=== PATIENT | female | born 1995 | race Caucasian/White ===

== ENCOUNTER 2017-09-11 14:49 | Inpatient (IN) | payer OTHER ==
[~2017-09-11] VITALS: Ht 149.9 cm; Wt 55.0 kg
[2017-09-11] VITALS (8 sets, daily range): BP systolic 102–146; BP diastolic 55–80; PULSE 114–142; RESP 18–19; TEMP 97.8–100.6; O2SAT 92–100
[2017-09-11] MEDS ORDERED: IOHEXOL 350 MG/ML 10 ML VIAL (for RAD DIAG) IVCONTRAST ONE (14:50)
--- NOTE | 2017-09-11 14:57 | PD ---
Physical Exam Time Seen by Provider: 14:53 Narrative 21-year-old female presents to emergency Department with complaint of abdominal pain, chills, vomiting, strong urine odor since last night. Is also complaining of headache. Unknown fevers. Patient does have fever 100.6 in triage. Heart rate is elevated. Patient seen in triage. Vital signs reviewed. Patient taken to medical bed. Data Data Last Documented VS Vital Signs Date Time Temp Pulse Resp B/P (MAP) Pulse Ox O2 Delivery O2 Flow Rate FiO2 09/11/17 14:52 100.6 142 18 134/71 (92) 96 MDM Supervised Visit with NINOSKA: Clair Meng Sep 11, 2017 14:57
[2017-09-11] MEDS ORDERED: SODIUM CHLOR 0.9% 1000 ML INJ 1,000 ML IV ONE ×4 (15:15→18:15)
--- NOTE | 2017-09-11 15:42 | PD ---
HPI Chief Complaint: Abdominal Pain Time Seen by Provider: 15:08 Travel History International Travel<30 days: No Contact w/Intl Traveler<30days: No Traveled to known affect area: No History of Present Illness HPI Patient is a 21-year-old female presents emergency Department with generalized aches all over her body. The patient states she's also had pain in her back and bilateral flanks and thinks she might have a kidney infection. She states she's been admitted to the hospital for kidney infections before. She states that her body aches of been all over her body for the past day and a half. She does not endorse any fevers. She states she's been having some mild nausea without vomiting and feels generally lousy. The patient on arrival appears to be ill, her symptoms are severe, worsening rapidly over the past day and a half , described as an ache, location as all over. Patient denies any rash, denies a history of IV drug use, denies any chest pain shortness of breath diarrhea or constipation or vaginal bleeding or vaginal discharge [facility] Past Medical History Genitourinary: Yes (uti's) ?: Not LMP: 09/01/17 Past Surgical History Surgical History: No Previous Surgery Social History Alcohol Use: Yes ([facility]) Tobacco Use: Yes (3 cigs/day) Substance Use: No Allergies-Medications (Allergen,Severity, Reaction): Coded Allergies: penicillin G (Verified Allergy, Severe, HIVES, 09/11/17) sulfamethoxazole (Verified Allergy, Severe, SEIZURE, 09/11/17) trimethoprim (Verified Allergy, Severe, SEIZURE, 09/11/17) Review of Systems Except as stated in HPI: all other systems reviewed are Neg Physical Exam Narrative GENERAL: Well-developed well-nourished, appears ill. SKIN: Hot and clammy. No rash no wound. HEAD: Atraumatic. Normocephalic. EYES: Pupils equal and round. No scleral icterus. No injection or drainage. ENT: No nasal bleeding or discharge. Mucous membranes pink and moist. NECK: Trachea midline. No JVD. CARDIOVASCULAR: Regular rhythm with tachycardia.. No murmur appreciated. 2+ bilateral equal pulses in all 4 extremities. RESPIRATORY: No accessory muscle use. Clear to auscultation. Breath sounds equal bilaterally. GASTROINTESTINAL: Abdomen soft, non-tender, nondistended. Hepatic and splenic margins not palpable. GENITOURINARY: Discharge from the cervix is white in appearance, there is strawberry cervix. No cervical friability no cervical motion tenderness no bimanual tenderness. MUSCULOSKELETAL: No obvious deformities. No clubbing. No cyanosis. No edema. NEUROLOGICAL: Awake and alert. No obvious cranial nerve deficits. Motor grossly within normal limits. Normal speech. PSYCHIATRIC: Appropriate mood and affect; insight and judgment normal. Data Data Last Documented VS Vital Signs Date Time Temp Pulse Resp B/P (MAP) Pulse Ox O2 Delivery O2 Flow Rate FiO2 09/11/17 17:11 126 19 102/55 (71) 99 Room Air 09/11/17 14:52 100.6 Orders Orders Electrocardiogram (09/11/17 15:12) Complete Blood Count With Diff (09/11/17 15:12) Comprehensive Metabolic Panel (09/11/17 15:12) Beta Hcg (Quant/Titer) (09/11/17 15:12) Prothrombin Time / Inr (Pt) (09/11/17 15:12) Act Partial Throm Time (Ptt) (09/11/17 15:12) Lactic Acid Sepsis Protocol (09/11/17 15:12) Magnesium (Mg) (09/11/17 15:12) Phosphorus (Po4) (09/11/17 15:12) Lipase (09/11/17 15:12) Ckmb (Isoenzyme) Profile (09/11/17 15:12) Troponin I (09/11/17 15:12) Urinalysis - C+S If Indicated (09/11/17 15:12) Blood Culture (09/11/17 15:12) Chest, Single Ap (09/11/17 15:12) Ecg Monitoring (09/11/17 15:12) Iv Access Insert/Monitor (09/11/17 15:12) Oximetry (09/11/17 15:12) Oxygen Administration (09/11/17 15:12) Sodium Chlor 0.9% 1000 Ml Inj (Ns 1000 M (09/11/17 15:15) Sodium Chlor 0.9% 1000 Ml Inj (Ns 1000 M (09/11/17 15:15) Urine Culture (09/11/17 15:40) Ketorolac Inj (Toradol Inj) (09/11/17 16:30) Ceftriaxone Inj (Rocephin Inj) (09/11/17 16:30) Gc And Chlamydia Pcr (09/11/17 16:28) Wet Prep Profile (09/11/17 16:28) CKMB (09/11/17 15:25) CKMB% (09/11/17 15:25) Influenzae A/B Antigen (09/11/17 17:00) Doxycycline (Vibramycin) (09/11/17 17:30) Azithromycin (Zithromax) (09/11/17 17:30) Metronidazole (Flagyl) (09/11/17 17:30) Ondansetron Inj (Zofran Inj) (09/11/17 17:30) Morphine Inj (Morphine Inj) (09/11/17 17:30) Ct Abd/Pel W Iv Contrast(Rout) (09/11/17 ) Labs Laboratory Tests Test 09/11/17 15:25 09/11/17 15:35 09/11/17 15:40 09/11/17 17:00 White Blood Count 18.2 TH/MM3 Red Blood Count 4.49 MIL/MM3 Hemoglobin 12.3 GM/DL Hematocrit 37.5 % Mean Corpuscular Volume 83.5 FL Mean Corpuscular Hemoglobin 27.5 PG Mean Corpuscular Hemoglobin Concent 32.9 % Red Cell Distribution Width 15.5 % Platelet Count 166 TH/MM3 Mean Platelet Volume 10.5 FL Neutrophils (%) (Auto) 84.6 % Lymphocytes (%) (Auto) 6.6 % Monocytes (%) (Auto) 8.5 % Eosinophils (%) (Auto) 0.0 % Basophils (%) (Auto) 0.3 % Neutrophils # (Auto) 15.4 TH/MM3 Lymphocytes # (Auto) 1.2 TH/MM3 Monocytes # (Auto) 1.6 TH/MM3 Eosinophils # (Auto) 0.0 TH/MM3 Basophils # (Auto) 0.1 TH/MM3 CBC Comment DIFF FINAL Differential Comment Prothrombin Time 13.8 SEC Prothromb Time International Ratio 1.2 RATIO Activated Partial Thromboplast Time 36.2 SEC Blood Urea Nitrogen 10 MG/DL Creatinine 0.85 MG/DL Random Glucose 91 MG/DL Total Protein 8.2 GM/DL Albumin 3.8 GM/DL Calcium Level 8.6 MG/DL Phosphorus Level 1.5 MG/DL Magnesium Level 1.7 MG/DL Alkaline Phosphatase 96 U/L Aspartate Amino Transf (AST/SGOT) 15 U/L Alanine Aminotransferase (ALT/SGPT) 19 U/L Total Bilirubin 0.9 MG/DL Sodium Level 128 MEQ/L Potassium Level 3.2 MEQ/L Chloride Level 95 MEQ/L Carbon Dioxide Level 21.7 MEQ/L Anion Gap 11 MEQ/L Estimat Glomerular Filtration Rate 84 ML/MIN Total Creatine Kinase 190 U/L Creatine Kinase MB 0.9 NG/ML Troponin I LESS THAN 0.02 NG/ML Lipase 60 U/L Human Chorionic Gonadotropin, Quant LESS THAN 1 MIU/ML Lactic Acid Level 0.9 mmol/L Urine Color YELLOW Urine Turbidity HAZY Urine pH 6.0 Urine Specific [place] 1.009 Urine Protein 30 mg/dL Urine Glucose (UA) NEG mg/dL Urine Ketones 150 mg/dL Urine Occult Blood MOD Urine Nitrite NEG Urine Bilirubin NEG Urine Urobilinogen LESS THAN 2.0 MG/DL Urine Leukocyte Esterase LARGE Urine RBC 20 /hpf Urine WBC 166 /hpf Urine WBC Clumps RARE Urine Squamous Epithelial Cells 17 /hpf Urine Renal Epithelial Cells 1 /hpf Urine Bacteria MANY /hpf Microscopic Urinalysis Comment CATH-CULTURE IND Clue Cells (Wet Prep) NONE SEEN Vaginal Trichomonas (Wet Prep) NONE SEEN Vaginal Yeast (Wet Prep) NONE SEEN MDM Medical Decision Making Medical Screen Exam Complete: Yes Emergency Medical Condition: Yes Differential Diagnosis UTI, sepsis, dehydration, electrolyte abnormality, pyelonephritis, acute abdomen , STD, PID. Narrative Course Patient roomed in the emergency department, appears ill on arrival does have to Sirs criteria on arrival. A blood cell count of 18.2 with left shift. Does have significant pyuria but contaminated specimen. Pelvic exam does reveal discharged without cervical motion tenderness. CAT scan of her abdomen has been ordered for completeness. Her chest x-ray is negative. Flu test negative. Blood cultures have been drawn and sent, patient was given Rocephin 1 g IV, azithromycin, doxycycline, Flagyl by mouth. Zofran. 2 L normal saline. Patient discussed with Dr. Argueta at 1700 shift change, additional 2 L of fluid of been ordered by her. We agree the patient does appear quite ill and will require admission to the hospital. Awaiting CAT scan of the abdomen Dr. Argueta will assume care and after CAT scan is performed will disposition the patient appropriately Critical Care Narrative Aggregate critical care time was 35 minutes. Time to perform other separately billable procedures was not included in the critical care time. My time did not include minutes spent treating any other patients simultaneously or on activities that did not directly contribute to the patient's treatment. The services I provided to this patient were to treat and/or prevent clinically significant deterioration that could result in: , disability, organ failure I provided critical care services requiring my management, as noted below: Chart data review, documentation time, medication orders and management, vital sign assessments/reviewing monitor data, ordering and reviewing lab tests, ordering and interpreting/reviewing x-rays and diagnostic studies, care of the patient and discussion of the patient with the admitting physicians. Diagnosis Primary Impression: Sepsis Qualified Codes: A41.9 - Sepsis, unspecified organism Additional Impressions: UTI (urinary tract infection) Vaginal discharge Admitting Information Admitting Physician Requests: Micah Hall MD Sep 11, 2017 15:42
--- NOTE | 2017-09-11 15:42 | RADRPT ---
EXAM DATE/TIME: 09/11/2017 15:09 [facility] COMPARISON: No previous studies available for comparison. INDICATIONS : Fever and chest pain. MEDICAL HISTORY : None. SURGICAL HISTORY : None. ENCOUNTER: Initial ACUITY: 1 day PAIN SCORE: 0/10 LOCATION: Bilateral chest FINDINGS: A single view of the chest demonstrates the lungs to be symmetrically aerated without evidence of mas s, infiltrate or effusion. The cardiomediastinal contours are unremarkable. Osseous structures are intact. CONCLUSION: Normal examination. Jose Fernandez Jr., MD on September 11, 2017 at 15:40 Board Certified Radiologist. This report was verified electronically.
[2017-09-11 15:53] LABS: AUTOMATED NEUTROPHIL # 15.4 TH/MM3 (1.8-7.7); BASOPHIL # 0.1 TH/MM3 (0-0.2); BASOPHIL % 0.3 % (0.0-2.0); HEMATOCRIT 37.5 % (35.0-46.0); HEMO FLAGS DIFF FINAL; LYMPH % 6.6 % (9.0-44.0); LYMPHOCYTE # 1.2 TH/MM3 (1.0-4.8); MEAN CELL VOLUME 83.5 FL (80.0-100.0); MEAN CORPUSCULAR HEMOGLOBIN 27.5 PG (27.0-34.0); MEAN CORPUSCULAR HGB CONC 32.9 % (32.0-36.0); MONO % 8.5 % (0.0-8.0); NEUT % 84.6 % (16.0-70.0); PLATELET COUNT 166 TH/MM3 (150-450); RED BLOOD COUNT 4.49 MIL/MM3 (4.00-5.30); RED CELL DISTRIBUTION WIDTH 15.5 % (11.6-17.2); WHITE BLOOD COUNT 18.2 TH/MM3 (4.0-11.0)
[2017-09-11 16:02] LABS: BACTERIA, URINE MANY /hpf; BLOOD, URINE MOD (NEG); GLUCOSE,URINE NEG (NEG); KETONE, URINE 150 mg/dL (NEG); NITRITE,URINE NEG (NEG); RENAL EPITHELIAL CELLS 1 /hpf; SQUAMOUS EPITHELIAL CELL URINE 17 /hpf (0-5); URINE COLOR YELLOW (YELLW/STRAW)
[2017-09-11 16:02] LABS: APTT (PATIENT) 36.2 SEC (24.3-30.1); INTERNATIONAL NORMALIZED RATIO 1.2 RATIO; PROTHROMBIN TIME - PATIENT 13.8 SEC (9.8-11.6)
[2017-09-11 16:03] LABS: COMMENT (UR) CATH-CULTURE IND; CULTURE IF INDICATED CATH CULTURE IND
[2017-09-11 16:29] LABS: ALT (GPT) 19 U/L (10-53); ANION GAP 11 MEQ/L (5-15); AST (GOT) 15 U/L (15-37); BICARBONATE 21.7 MEQ/L (21.0-32.0); BLOOD UREA NITROGEN 10 MG/DL (7-18); CHLORIDE 95 MEQ/L (98-107); GLOMERULAR FILTRATION RATE 84 ML/MIN (>89); MAGNESIUM 1.7 MG/DL (1.5-2.5); POTASSIUM 3.2 MEQ/L (3.5-5.1); SODIUM (NA) 128 MEQ/L (136-145)
[2017-09-11] MEDS ORDERED: KETOROLAC TROMETHAMINE 30 MG/ML (IVP) VIAL IV PUSH ONE (16:30)
[2017-09-11] MEDS ORDERED: cefTRIAXone INJ 1,000 MG in SODIUM CHLORIDE 0.9% INJ 100 ML IV ONE (16:30)
[2017-09-11 16:33] LABS: ALKALINE PHOSPHATASE 96 U/L (45-117); BETA HCG QUANT LESS THAN 1 MIU/ML (0-5); CREATINE KINASE 190 U/L (26-192); TOTAL BILIRUBIN ADULT 0.9 MG/DL (0.2-1.0)
[2017-09-11 16:45] LABS: CKMB 0.9 NG/ML (0.5-3.6)
[2017-09-11] MEDS ORDERED: metroNIDAZOLE 500 MG TAB PO ONE (17:30)
[2017-09-11] MEDS ORDERED: DOXYCYCLINE HYCLATE 100 MG CAP PO ONE (17:30)
[2017-09-11] MEDS ORDERED: ONDANSETRON HCL 4 MG/2 ML VIAL IV PUSH ONE (17:30)
[2017-09-11] MEDS ORDERED: AZITHROMYCIN 250 MG TAB PO ONE (17:30)
[2017-09-11] MEDS ORDERED: MORPHINE SULFATE 2 MG/ML INJ IV PUSH ONE (17:30)
--- NOTE | 2017-09-11 18:12 | PD ---
Physical Exam Date Seen by Provider: Sep 11, 2017 Narrative Care was assumed from Dr. Shaw at 5 PM pending workup for sepsis. The patient has had 2 L of fluid thus far. Her heart rate remains between 125 and 140. Systolic blood pressure was 105. Abrasions are dry. Abdomen is soft and nontender. She does have some right CVA tenderness as well. Data Data Last Documented VS Vital Signs Date Time Temp Pulse Resp B/P (MAP) Pulse Ox O2 Delivery O2 Flow Rate FiO2 09/11/17 20:15 99.5 122 18 129/68 (88) 98 Room Air Orders Orders Electrocardiogram (09/11/17 15:12) Complete Blood Count With Diff (09/11/17 15:12) Comprehensive Metabolic Panel (09/11/17 15:12) Beta Hcg (Quant/Titer) (09/11/17 15:12) Prothrombin Time / Inr (Pt) (09/11/17 15:12) Act Partial Throm Time (Ptt) (09/11/17 15:12) Lactic Acid Sepsis Protocol (09/11/17 15:12) Magnesium (Mg) (09/11/17 15:12) Phosphorus (Po4) (09/11/17 15:12) Lipase (09/11/17 15:12) Ckmb (Isoenzyme) Profile (09/11/17 15:12) Troponin I (09/11/17 15:12) Urinalysis - C+S If Indicated (09/11/17 15:12) Blood Culture (09/11/17 15:12) Chest, Single Ap (09/11/17 15:12) Ecg Monitoring (09/11/17 15:12) Iv Access Insert/Monitor (09/11/17 15:12) Oximetry (09/11/17 15:12) Oxygen Administration (09/11/17 15:12) Sodium Chlor 0.9% 1000 Ml Inj (Ns 1000 M (09/11/17 15:15) Sodium Chlor 0.9% 1000 Ml Inj (Ns 1000 M (09/11/17 15:15) Urine Culture (09/11/17 15:40) Ketorolac Inj (Toradol Inj) (09/11/17 16:30) Ceftriaxone Inj (Rocephin Inj) (09/11/17 16:30) Gc And Chlamydia Pcr (09/11/17 16:28) Wet Prep Profile (09/11/17 16:28) CKMB (09/11/17 15:25) CKMB% (09/11/17 15:25) Influenzae A/B Antigen (09/11/17 17:00) Doxycycline (Vibramycin) (09/11/17 17:30) Azithromycin (Zithromax) (09/11/17 17:30) Metronidazole (Flagyl) (09/11/17 17:30) Ondansetron Inj (Zofran Inj) (09/11/17 17:30) Morphine Inj (Morphine Inj) (09/11/17 17:30) Ct Abd/Pel W Iv Contrast(Rout) (09/11/17 ) Sodium Chlor 0.9% 1000 Ml Inj (Ns 1000 M (09/11/17 18:15) Sodium Chlor 0.9% 1000 Ml Inj (Ns 1000 M (09/11/17 18:15) Iohexol 350 Inj (Omnipaque 350 Inj) (09/11/17 14:50) Acetaminophen (Tylenol) (09/11/17 18:15) Sodium Chlor 0.9% 1000 Ml Inj (Ns 1000 M (09/11/17 20:15) Admit Order (Ed Use Only) (09/11/17 20:16) Place In Observation (09/11/17 ) Vital Signs (Adult) Q4H (09/11/17 20:16) Activity Oob With Assistance (09/11/17 20:16) Jewel Stripper / Telemetry .CONTINUOUS (09/11/17 20:16) Intake + Output TOÑITO.QSHIFT (09/11/17 20:16) Diet Heart Healthy (09/12/17 Breakfast) Sodium Chloride 0.9% Flush (Ns Flush) (09/11/17 20:30) Sodium Chloride 0.9% Flush (Ns Flush) (09/11/17 21:00) Basic Metabolic Panel (Bmp) (09/12/17 06:00) Complete Blood Count With Diff (09/12/17 06:00) Case Management Consult (09/11/17 20:16) Naloxone Inj (Narcan Inj) (09/11/17 20:30) Labs Laboratory Tests Test 09/11/17 15:25 09/11/17 15:35 09/11/17 15:40 09/11/17 17:00 White Blood Count 18.2 TH/MM3 Red Blood Count 4.49 MIL/MM3 Hemoglobin 12.3 GM/DL Hematocrit 37.5 % Mean Corpuscular Volume 83.5 FL Mean Corpuscular Hemoglobin 27.5 PG Mean Corpuscular Hemoglobin Concent 32.9 % Red Cell Distribution Width 15.5 % Platelet Count 166 TH/MM3 Mean Platelet Volume 10.5 FL Neutrophils (%) (Auto) 84.6 % Lymphocytes (%) (Auto) 6.6 % Monocytes (%) (Auto) 8.5 % Eosinophils (%) (Auto) 0.0 % Basophils (%) (Auto) 0.3 % Neutrophils # (Auto) 15.4 TH/MM3 Lymphocytes # (Auto) 1.2 TH/MM3 Monocytes # (Auto) 1.6 TH/MM3 Eosinophils # (Auto) 0.0 TH/MM3 Basophils # (Auto) 0.1 TH/MM3 CBC Comment DIFF FINAL Differential Comment Prothrombin Time 13.8 SEC Prothromb Time International Ratio 1.2 RATIO Activated Partial Thromboplast Time 36.2 SEC Blood Urea Nitrogen 10 MG/DL Creatinine 0.85 MG/DL Random Glucose 91 MG/DL Total Protein 8.2 GM/DL Albumin 3.8 GM/DL Calcium Level 8.6 MG/DL Phosphorus Level 1.5 MG/DL Magnesium Level 1.7 MG/DL Alkaline Phosphatase 96 U/L Aspartate Amino Transf (AST/SGOT) 15 U/L Alanine Aminotransferase (ALT/SGPT) 19 U/L Total Bilirubin 0.9 MG/DL Sodium Level 128 MEQ/L Potassium Level 3.2 MEQ/L Chloride Level 95 MEQ/L Carbon Dioxide Level 21.7 MEQ/L Anion Gap 11 MEQ/L Estimat Glomerular Filtration Rate 84 ML/MIN Total Creatine Kinase 190 U/L Creatine Kinase MB 0.9 NG/ML Troponin I LESS THAN 0.02 NG/ML Lipase 60 U/L Human Chorionic Gonadotropin, Quant LESS THAN 1 MIU/ML Lactic Acid Level 0.9 mmol/L Urine Color YELLOW Urine Turbidity HAZY Urine pH 6.0 Urine Specific [place] 1.009 Urine Protein 30 mg/dL Urine Glucose (UA) NEG mg/dL Urine Ketones 150 mg/dL Urine Occult Blood MOD Urine Nitrite NEG Urine Bilirubin NEG Urine Urobilinogen LESS THAN 2.0 MG/DL Urine Leukocyte Esterase LARGE Urine RBC 20 /hpf Urine WBC 166 /hpf Urine WBC Clumps RARE Urine Squamous Epithelial Cells 17 /hpf Urine Renal Epithelial Cells 1 /hpf Urine Bacteria MANY /hpf Microscopic Urinalysis Comment CATH-CULTURE IND Clue Cells (Wet Prep) NONE SEEN Vaginal Trichomonas (Wet Prep) NONE SEEN Vaginal Yeast (Wet Prep) NONE SEEN MDM Supervised Visit with NINOSKA: No Narrative Course Vital Signs Date Time Temp Pulse Resp B/P (MAP) Pulse Ox O2 Delivery O2 Flow Rate FiO2 09/11/17 17:11 126 19 102/55 (71) 99 Room Air 09/11/17 17:10 16 09/11/17 15:48 132 19 133/80 (97) 99 Room Air 09/11/17 15:27 100 Room Air 09/11/17 14:52 100.6 142 18 134/71 (92) 96 CBC & BMP Diagram 09/11/17 15:25 Total Protein 8.2, Albumin 3.8, Calcium Level 8.6, Phosphorus Level 1.5 L, Magnesium Level 1.7, Alkaline Phosphatase 96, Aspartate Amino Transf (AST/SGOT) 15, Alanine Aminotransferase (ALT/SGPT) 19, Total Bilirubin 0.9 Lactic acid level is 0.9. UA>>mod blood, 20 RBCs, 166 WBCs, many bact Wet prep is negative. Chest x-ray is negative for acute process. The chest x-ray was independently viewed by me. His patient has been treated so far with Rocephin, doxycycline, Zithromax and Flagyl. She has already been bolused with 2 L of fluid. I have added an additional 2 L of fluid. She has not been hypotensive so pressors have not been ordered. Critical Care Narrative Aggregate critical care time was 45 minutes. Time to perform other separately billable procedures was not included in the critical care time. My time did not include minutes spent treating any other patients simultaneously or on activities that did not directly contribute to the patient's treatment. The services I provided to this patient were to treat and/or prevent clinically significant deterioration due to pyelonephritis with sepsis I provided critical care services requiring my management, as noted below: Chart data review, documentation time, medication orders and management, vital sign assessments/reviewing monitor data, ordering and reviewing lab tests, ordering and interpreting/reviewing x-rays and diagnostic studies, care of the patient and discussion of the patient with the admitting physicians Sepsis Criteria SIRS Criteria (2 or more): Heart rate over 90, WBC > 64880, < 4000 or > 10% bands Sepsis Criteria (SIRS+source): Infect source susp/known Physician Communication Physician Communication [facility] initially paged at [phone]. Diagnosis Primary Impression: Sepsis Qualified Codes: A41.9 - Sepsis, unspecified organism Additional Impressions: Vaginal discharge UTI (urinary tract infection) Qualified Codes: N10 - Acute pyelonephritis Admitting Information Admitting Physician Requests: Admit Condition: Christy Mejias MD Sep 11, 2017 18:12
[2017-09-11] MEDS ORDERED: ACETAMINOPHEN 325 MG TAB PO ONE (18:15)
--- NOTE | 2017-09-11 18:40 | RADRPT ---
EXAM DATE/TIME: 09/11/2017 17:57 [facility] COMPARISON: No previous studies available for comparison. INDICATIONS : Generalized abdominal pain with nausea and vomiting. IV CONTRAST: 100 cc Omnipaque 350 (iohexol) IV ORAL CONTRAST: No oral contrast ingested. RADIATION DOSE: 9.97 CTDIvol (mGy) MEDICAL HISTORY : None SURGICAL HISTORY : None. ENCOUNTER: Initial ACUITY: 1 day PAIN SCALE: 6/10 LOCATION: abdomen TECHNIQUE: Volumetric scanning of the abdomen and pelvis was performed. Using automated exposure control and ad justment of the mA and/or kV according to patient size, radiation dose was kept as low as reasonably achievable to obtain optimal diagnostic quality images. DICOM format image data is available electro nically for review and comparison. FINDINGS: LOWER LUNGS: The visualized lower lungs are clear. LIVER: Homogeneous density without lesion. There is no dilation of the biliary tree. No calcified gallston es. SPLEEN: Normal size without lesion. PANCREAS: Within normal limits. KIDNEYS: There are multiple subcentimeter nonobstructing stones throughout both kidneys. No evidence of hydron ephrosis. The left kidney is otherwise unremarkable. However, there is an area of decreased density a nd edema involving the upper pole of the right kidney. There appears to be some inflammatory type sandra nges in the perinephric fat adjacent to the right kidney along the upper pole. The ureters are nondil ated. ADRENAL GLANDS: Within normal limits. VASCULAR: There is no aortic aneurysm. BOWEL/MESENTERY: The stomach, small bowel, and colon demonstrate no acute abnormality. There is no free intraperitone al air or fluid. ABDOMINAL WALL: Within normal limits. RETROPERITONEUM: There is no lymphadenopathy. BLADDER: No wall thickening or mass. REPRODUCTIVE: Within normal limits. INGUINAL: There is no lymphadenopathy or hernia. MUSCULOSKELETAL: Within normal limits for patient age. CONCLUSION: 1. There is an area of decreased density and edema involving the upper pole the right kidney with renato e adjacent inflammatory type changes suggestive of focal nephritis given the bilateral nonobstructing renal stones.. This needs to be correlated with patient's physical exam, clinical history and labora tory values. A second possibility could be a focal infarct of unknown etiology versus focal laceratio n if patient has a recent history of trauma to this location.. 2. Otherwise, the rest examination is unremarkable. Joey Cabrera MD on September 11, 2017 at 18:33 Board Certified Radiologist. This report was verified electronically.
[2017-09-11] MEDS: SODIUM CHLOR 0.9% 1000 ML INJ 1,000 ML IV SCH (20:15)
[2017-09-11] MEDS ORDERED: NALOXONE HCL 0.4 MG/ML AMP IV PUSH PRN (20:30)
[2017-09-11] MEDS ORDERED: POTASSIUM CHLORIDE 20 MEQ CONTROLLED RELEASE TAB PO ONE (20:30)
[2017-09-11] MEDS ORDERED: SODIUM CHLORIDE 0.9% FLUSH 10 ML FLUSH IV FLUSH PRN (20:30)
[2017-09-11 20:45] LABS: CHLAMYDIA PCR NOT DETECTED (NOT DETECT); NEISSERIA PCR NOT DETECTED (NOT DETECT)
[2017-09-11] MEDS ORDERED: ACETAMINOPHEN/HYDROcodone 325 MG/5 MG TAB PO PRN (21:00)
[2017-09-11] MEDS: SODIUM CHLORIDE 0.9% FLUSH 10 ML FLUSH IV FLUSH SCH (21:00)
--- NOTE | 2017-09-11 21:06 | HHI.HP ---
HPI Service [facility] Primary Care Physician No Primary Care Physician Admission Diagnosis sepsis, pyelonephritis Diagnoses: Chief Complaint: back pain, and weakness Travel History International Travel<30 Days: No Contact w/Intl Traveler <30 Da: No Traveled to Known Affected Are: No History of Present Illness 21-year-old female with a history of kidney stones to the ED with complaints of general body aches and back pain for the past 2 days. Patient states over the past 2 days she has been having increasing generalized body aches and back pain , and today is extremely worse so she came to the hospital. She states the pain is a constant achy feeling the effects her whole body, with sharp pains to her lower back. She states the pain as an 8 out of 10 most of the time and worse with movement, she has been unable to eat and drink what the last 2 days. She states her last kidney stone was 2 months ago in [place]. She has not established a primary care physician in this area, she is in the process of moving from [place]. She states at home she is unsure if she had a fever due to lack of thermometer, but she does state she felt very cold and feverish. She denies any chest pain, shortness of breath, nausea or vomiting. Per the ER physician a pelvic exam was completed patient had positive cervical motion tenderness or discharge. Review of Systems Except as stated in HPI: all other systems reviewed are Neg Past Family Social History Past Medical History Kidney stones Past Surgical History Patient denies any surgical history Reported Medications Patient denies any home medications Allergies: Coded Allergies: penicillin G (Verified Allergy, Severe, HIVES, 09/11/17) sulfamethoxazole (Verified Allergy, Severe, SEIZURE, 09/11/17) trimethoprim (Verified Allergy, Severe, SEIZURE, 09/11/17) Active Ordered Medications Current Medications Medications (Trade) Dose Ordered Sig/Talya Route Start Time Stop Time Status Last Admin Sodium Chloride 1,000 ml @ 125 mls/hr Q8H IV 09/11/17 20:15 (NS Flush) 2 ml UNSCH PRN IV FLUSH 09/11/17 20:30 (NS Flush) 2 ml BID IV FLUSH 09/11/17 21:00 (Narcan Inj) 0.4 mg UNSCH PRN IV PUSH 09/11/17 20:30 Ciprofloxacin/ Dextrose 200 ml @ 200 mls/hr Q12H IV 09/11/17 21:00 Family History Dad: Kidney stones Social History Tobacco use: 2-3 cigarettes a day Alcohol use: Occasionally Illicit drug use: Denies Physical Exam Vital Signs Vital Signs Date Time Temp Pulse Resp B/P (MAP) Pulse Ox O2 Delivery O2 Flow Rate FiO2 09/11/17 20:15 99.5 122 18 129/68 (88) 98 Room Air 09/11/17 18:31 99.8 09/11/17 18:30 117 18 146/70 (95) 98 Room Air 09/11/17 17:11 126 19 102/55 (71) 99 Room Air 09/11/17 17:10 16 09/11/17 15:48 132 19 133/80 (97) 99 Room Air 09/11/17 15:27 100 Room Air 09/11/17 14:52 100.6 142 18 134/71 (92) 96 Physical Exam GENERAL: This is a well-nourished, well-developed patient, who appears weak SKIN: No rashes, ecchymoses or lesions. Cool and dry. HEAD: Atraumatic. Normocephalic EYES: Pupils equal round and reactive. Extraocular motions intact. ENT: Nose without bleeding, purulent drainage or septal hematoma. Airway patent. NECK: Trachea midline. No JVD or lymphadenopathy. Supple, nontender, no meningeal signs. CARDIOVASCULAR: Regular rate and rhythm without murmurs, gallops, or rubs. RESPIRATORY: Clear to auscultation. Breath sounds equal bilaterally. No wheezes , rales, or rhonchi. GASTROINTESTINAL: Abdomen soft, non-tender, nondistended. Bilateral CVA tenderness MUSCULOSKELETAL: Extremities without clubbing, cyanosis, or edema. . No calf tenderness. NEUROLOGICAL: Awake and alert. Motor and sensory grossly within normal limits. Normal speech. Laboratory Laboratory Tests Test 09/11/17 15:25 09/11/17 15:35 09/11/17 15:40 09/11/17 17:00 White Blood Count 18.2 Red Blood Count 4.49 Hemoglobin 12.3 Hematocrit 37.5 Mean Corpuscular Volume 83.5 Mean Corpuscular Hemoglobin 27.5 Mean Corpuscular Hemoglobin Concent 32.9 Red Cell Distribution Width 15.5 Platelet Count 166 Mean Platelet Volume 10.5 Neutrophils (%) (Auto) 84.6 Lymphocytes (%) (Auto) 6.6 Monocytes (%) (Auto) 8.5 Eosinophils (%) (Auto) 0.0 Basophils (%) (Auto) 0.3 Neutrophils # (Auto) 15.4 Lymphocytes # (Auto) 1.2 Monocytes # (Auto) 1.6 Eosinophils # (Auto) 0.0 Basophils # (Auto) 0.1 CBC Comment DIFF FINAL Differential Comment Prothrombin Time 13.8 Prothromb Time International Ratio 1.2 Activated Partial Thromboplast Time 36.2 Blood Urea Nitrogen 10 Creatinine 0.85 Random Glucose 91 Total Protein 8.2 Albumin 3.8 Calcium Level 8.6 Phosphorus Level 1.5 Magnesium Level 1.7 Alkaline Phosphatase 96 Aspartate Amino Transf (AST/SGOT) 15 Alanine Aminotransferase (ALT/SGPT) 19 Total Bilirubin 0.9 Sodium Level 128 Potassium Level 3.2 Chloride Level 95 Carbon Dioxide Level 21.7 Anion Gap 11 Estimat Glomerular Filtration Rate 84 Total Creatine Kinase 190 Creatine Kinase MB 0.9 Troponin I LESS THAN 0.02 Lipase 60 Human Chorionic Gonadotropin, Quant LESS THAN 1 Lactic Acid Level 0.9 Urine Color YELLOW Urine Turbidity HAZY Urine pH 6.0 Urine Specific [place] 1.009 Urine Protein 30 Urine Glucose (UA) NEG Urine Ketones 150 Urine Occult Blood MOD Urine Nitrite NEG Urine Bilirubin NEG Urine Urobilinogen LESS THAN 2.0 Urine Leukocyte Esterase LARGE Urine RBC 20 Urine WBC 166 Urine WBC Clumps RARE Urine Squamous Epithelial Cells 17 Urine Renal Epithelial Cells 1 Urine Bacteria MANY Microscopic Urinalysis Comment CATH-CULTURE IND Clue Cells (Wet Prep) NONE SEEN Vaginal Trichomonas (Wet Prep) NONE SEEN Vaginal Yeast (Wet Prep) NONE SEEN Date/Time Source Procedure Growth Status 09/11/17 15:38 Blood Peripheral Aerobic Blood Culture Pending Received 09/11/17 15:38 Blood Peripheral Anaerobic Blood Culture Pending Received 09/11/17 17:05 Nasal Washing Influenza Types A,B Antigen (RIVERA) - Final NEGATIVE FOR FLU A AND B ANTIGEN.... Complete 09/11/17 15:40 Urine Catheterized Urine Urine Culture Pending Received Result Diagram: 09/11/17 1525 09/11/17 1525 Imaging Last Impressions Chest X-Ray 09/11/17 1512 Signed Impressions: Service Date/Time: Monday, September 11, 2017 15:09 - CONCLUSION: Normal examination. Jose Fernandez Jr., MD Abdomen/Pelvis CT 09/11/17 0000 Signed Impressions: Service Date/Time: Monday, September 11, 2017 17:57 - CONCLUSION: 1. There is an area of decreased density and edema involving the upper pole the right kidney with some adjacent inflammatory type changes suggestive of focal nephritis given the bilateral nonobstructing renal stones.. This needs to be correlated with patient's physical exam, clinical history and laboratory values. A second possibility could be a focal infarct of unknown etiology versus focal laceration if patient has a recent history of trauma to this location.. 2. Otherwise, the rest examination is unremarkable. MD Orquidea Geller VTE Risk Assessment Caprini VTE Risk Assessment: No/Low Risk (score <= 1) Caprini Risk Assessment Model Point Value = 1 Point Value = 2 Point Value = 3 Point Value = 5 Age 41-60 Minor surgery BMI > 25 kg/m2 Swollen legs Varicose veins or History of unexplained or recurrent spontaneous Oral contraceptives or hormone replacement Sepsis (< 1 month) Serious lung disease, including pneumonia (< 1 month) Abnormal pulmonary function Acute myocardial infarction Congestive heart failure (< 1 month) History of inflammatory bowel disease Medical patient at bed rest Age 61-74 Arthroscopic surgery Major open surgery (> 45 min) Laparoscopic surgery (> 45 min) Malignancy Confined to bed (> 72 hours) Immobilizing plaster cast Central venous access Age >= 75 History of VTE Family history of VTE Factor V Leiden Prothrombin [id number] Lupus anticoagulant Anticardiolipin antibodies Elevated serum homocysteine Heparin-induced thrombocytopenia Other congenital or acquired thrombophilia Stroke (< 1 month) Elective arthroplasty Hip, pelvis, or leg fracture Acute spinal cord injury (< 1 month) Prophylaxis Regimen Total Risk Factor Score Risk Level Prophylaxis Regimen 0-1 Low Early ambulation 2 Moderate Order ONE of the following: *Sequential Compression Device (SCD) *Heparin 5000 units SQ BID 3-4 Higher Order ONE of the following medications: *Heparin 5000 units SQ TID *Enoxaparin/Lovenox 40 mg SQ daily (WT < 150 kg, CrCl > 30 mL/min) *Enoxaparin/Lovenox 30 mg SQ daily (WT < 150 kg, CrCl > 10-29 mL/min) *Enoxaparin/Lovenox 30 mg SQ BID (WT < 150 kg, CrCl > 30 mL/min) AND/OR *Sequential Compression Device (SCD) 5 or more Highest Order ONE of the following medications: *Heparin 5000 units SQ TID (Preferred with Epidurals) *Enoxaparin/Lovenox 40 mg SQ daily (WT < 150 kg, CrCl > 30 mL/min) *Enoxaparin/Lovenox 30 mg SQ daily (WT < 150 kg, CrCl > 10-29 mL/min) *Enoxaparin/Lovenox 30 mg SQ BID (WT < 150 kg, CrCl > 30 mL/min) AND *Sequential Compression Device (SCD) Assessment and Plan Problem List: (1) Pyelonephritis ICD Code: N12 - Tubulo-interstitial nephritis, not specified as acute or chronic Status: Acute (2) Sepsis ICD Code: A41.9 - Sepsis, unspecified organism Status: Acute (3) Vaginal discharge ICD Code: N89.8 - Other specified noninflammatory disorders of vagina Status: Acute Assessment and Plan 21-year-old female with a history of kidney stones to the ED with complaints of general body aches and back pain for the past 2 days. Sepsis, WBCs 18.2, heart rate 142, MAXIMUM TEMPERATURE 100.6 , source Pyelonephritis, lactic 0.9 UA shows large leukocyte esterase and moderate occult blood with positive protein Abdominal CT reviewed and shows decreased density and edema involving the upper pole of the right kidney with some adjacent inflammatory type changes suggestive of focal nephritis given the bilateral nonobstructing renal stones. -Urine culture and blood cultures pending -1 dose Rocephin given in the ED, continue IV ciprofloxacin -4 L NS given an ED, continue IVF for hydration -Pain management with by mouth [place] Hypokalemia, potassium 3.2 -Supplementation ordered, BMP in a.m., will replace as needed Vaginal discharge, wet prep completed in ED, patient with positive cervical motion tenderness Labs: Chlamydia, gonorrhea, Trichomonas and yeast undetected -Patient treated for chlamydia and gonorrhea in ED DVT prophylaxis: SCDs Discussed Condition With Patient and RN Physician Certification 2 Midnight Certification Type: Admission for Inpatient Services Order for Inpatient Services The services are ordered in accordance with Medicare regulations or non- Medicare payer requirements, as applicable. In the case of services not specified as inpatient-only, they are appropriately provided as inpatient services in accordance with the 2-midnight benchmark. Estimated LOS (days): 2 days is the estimated time the patient will need to remain in the hospital, assuming treatment plan goals are met and no additional complications. Post-Hospital Plan: Home Problem Qualifiers (1) Sepsis: Qualified Codes: A41.9 - Sepsis, unspecified organism Jordyn Nunes Sep 11, 2017 21:05
[2017-09-11] MEDS ORDERED: ONDANSETRON HCL 4 MG/2 ML VIAL IV PUSH PRN (22:00)
[2017-09-11] MEDS: ACETAMINOPHEN/HYDROcodone 325 MG/10 MG TAB PO PRN (22:32)
[2017-09-11] MEDS: CIPROFLOXACIN 400 MG PREMIX 200 ML IV SCH (22:32)
[2017-09-12] VITALS: BP 107/58; PULSE 100; RESP 18; TEMP 97.7; O2SAT 96
[2017-09-12] MEDS: SODIUM CHLOR 0.9% 1000 ML INJ 1,000 ML IV SCH ×2 (04:15→12:50)
[2017-09-12 04:24] VITALS: BP 95/55; PULSE 105; RESP 18; TEMP 97.5; O2SAT 92
[2017-09-12 07:21] LABS: AUTOMATED NEUTROPHIL # 6.9 TH/MM3 (1.8-7.7); BASOPHIL # 0.1 TH/MM3 (0-0.2); BASOPHIL % 0.6 % (0.0-2.0); EOSINOPHIL % 0.2 % (0.0-4.0); HEMATOCRIT 28.6 % (35.0-46.0); HEMO FLAGS DIFF FINAL; LYMPH % 16.2 % (9.0-44.0); LYMPHOCYTE # 1.7 TH/MM3 (1.0-4.8); MEAN CELL VOLUME 84.5 FL (80.0-100.0); MEAN CORPUSCULAR HEMOGLOBIN 28.2 PG (27.0-34.0); MEAN CORPUSCULAR HGB CONC 33.4 % (32.0-36.0); MONO % 15.8 % (0.0-8.0); NEUT % 67.2 % (16.0-70.0); PLATELET COUNT 116 TH/MM3 (150-450); RED BLOOD COUNT 3.39 MIL/MM3 (4.00-5.30); RED CELL DISTRIBUTION WIDTH 15.7 % (11.6-17.2); WHITE BLOOD COUNT 10.3 TH/MM3 (4.0-11.0)
[2017-09-12 07:52] LABS: BICARBONATE 20.1 MEQ/L (21.0-32.0); POTASSIUM 3.7 MEQ/L (3.5-5.1)
[2017-09-12 07:58] VITALS: BP 100/59; PULSE 98; RESP 16; TEMP 99.1; O2SAT 93
--- NOTE | 2017-09-12 08:13 | HHI.PR ---
Subjective Remarks Patient in bed, appears ill. No fever overnight. + chills. Was nauseated yesterday able to keep down some food. decreased appetite. No n/v/d/c. Pain is fairly controlled by meds. Pain is on right back radiating to the groin. No change in urine. Objective Vitals Vital Signs Date Time Temp Pulse Resp B/P (MAP) Pulse Ox O2 Delivery O2 Flow Rate FiO2 09/12/17 07:58 99.1 98 16 100/59 (73) 93 09/12/17 04:24 97.5 105 18 95/55 (68) 92 09/12/17 00:00 97.7 100 18 107/58 (74) 96 09/11/17 20:56 09/11/17 20:15 99.5 122 18 129/68 (88) 98 Room Air 09/11/17 20:00 97.8 114 18 105/61 (76) 92 09/11/17 18:31 99.8 09/11/17 18:30 117 18 146/70 (95) 98 Room Air 09/11/17 17:11 126 19 102/55 (71) 99 Room Air 09/11/17 17:10 16 09/11/17 15:48 132 19 133/80 (97) 99 Room Air 09/11/17 15:27 100 Room Air 09/11/17 14:52 100.6 142 18 134/71 (92) 96 I/O 09/11/17 09/11/17 09/11/17 09/12/17 09/12/17 09/12/17 07:00 15:00 23:00 07:00 15:00 23:00 Intake Total 4100 ml 1200 ml Output Total 1 ml Balance 4100 ml 1199 ml Intake IV Total 4100 ml 1200 ml Output Urine Total 1 ml # Voids 1 # Bowel Movements 2 Result Diagram: 09/12/17 0643 09/12/17 0643 Imaging Last Impressions Chest X-Ray 09/11/17 1512 Signed Impressions: Service Date/Time: Monday, September 11, 2017 15:09 - CONCLUSION: Normal examination. Jose Fernandez Jr., MD Abdomen/Pelvis CT 09/11/17 0000 Signed Impressions: Service Date/Time: Monday, September 11, 2017 17:57 - CONCLUSION: 1. There is an area of decreased density and edema involving the upper pole the right kidney with some adjacent inflammatory type changes suggestive of focal nephritis given the bilateral nonobstructing renal stones.. This needs to be correlated with patient's physical exam, clinical history and laboratory values. A second possibility could be a focal infarct of unknown etiology versus focal laceration if patient has a recent history of trauma to this location.. 2. Otherwise, the rest examination is unremarkable. Joey Cabrera MD Objective Remarks GENERAL: This is a well-nourished, well-developed patient, who appears ill CARDIOVASCULAR: Regular rate and rhythm without murmurs, gallops, or rubs. RESPIRATORY: Clear to auscultation. Breath sounds equal bilaterally. No wheezes , rales, or rhonchi. GASTROINTESTINAL: Abdomen soft right sided mild tenderness, Right CVA +, abd is nondistended. + BS x4Q MUSCULOSKELETAL: Extremities without clubbing, cyanosis, or edema. . No calf tenderness. NEUROLOGICAL: Awake and alert. Motor and sensory grossly within normal limits. Normal speech. A/P Problem List: (1) Pyelonephritis ICD Code: N12 - Tubulo-interstitial nephritis, not specified as acute or chronic Status: Acute (2) Sepsis ICD Code: A41.9 - Sepsis, unspecified organism Status: Acute (3) Vaginal discharge ICD Code: N89.8 - Other specified noninflammatory disorders of vagina Status: Acute Assessment and Plan 21-year-old female with a history of kidney stones to the ED with complaints of general body aches and back pain for the past 2 days. Sepsis, WBCs 18.2, heart rate 142, MAXIMUM TEMPERATURE 100.6 , source Pyelonephritis, lactic 0.9 on admission UA shows large leukocyte esterase and moderate occult blood with positive protein on admission Abdominal CT reviewed and shows decreased density and edema involving the upper pole of the right kidney with some adjacent inflammatory type changes suggestive of focal nephritis given the bilateral nonobstructing renal stones. -Urine culture and blood cultures pending -1 dose Rocephin given in the ED, continue IV ciprofloxacin -4 L NS given an ED, continue IVF for hydration -Pain management with by mouth [place] Hypokalemia, potassium 3.2 -Supplementation ordered, BMP in a.m., will replace as needed Vaginal discharge, wet prep completed in ED, patient with positive cervical motion tenderness Labs: Chlamydia, gonorrhea, Trichomonas and yeast undetected -Patient treated for chlamydia and gonorrhea in ED DVT prophylaxis: SCDs Discussed Condition With Patient, nurse Problem Qualifiers (1) Sepsis: Qualified Codes: A41.9 - Sepsis, unspecified organism Cherry Potter MD Sep 12, 2017 08:13
[2017-09-12] MEDS: SODIUM CHLORIDE 0.9% FLUSH 10 ML FLUSH IV FLUSH SCH ×2 (10:30→20:05)
[2017-09-12] MEDS: CIPROFLOXACIN 400 MG PREMIX 200 ML IV SCH ×2 (10:30→20:07)
[2017-09-12 12:00] VITALS: BP 124/71; PULSE 106; RESP 18; TEMP 101.3; O2SAT 97
--- NOTE | 2017-09-12 12:10 | EKG ---
Date Performed: 09/11/2017 Time Performed: 15:30:06 PTAGE: 21 years EKG: SINUS TACHYCARDIA ABNORMAL RHYTHM ECG NO PREVIOUS TRACING DOCTOR: Janell Contreras Interpretating Date/Time 09/12/2017 12:09:07
[2017-09-12] MEDS: ACETAMINOPHEN/HYDROcodone 325 MG/10 MG TAB PO PRN (13:25)
[2017-09-12] MEDS ORDERED: ACETAMINOPHEN 325 MG TAB PO PRN (14:00)
[2017-09-12 16:00] VITALS: BP 118/76; PULSE 106; RESP 16; TEMP 100.3; O2SAT 96
[2017-09-12 20:00] VITALS: BP 123/77; PULSE 91; PULSE 92; RESP 18; TEMP 98.7; O2SAT 97
[2017-09-13 00:05] VITALS: BP 126/86; PULSE 93; RESP 18; TEMP 98.2; O2SAT 98
[2017-09-13] MEDS: SODIUM CHLOR 0.9% 1000 ML INJ 1,000 ML IV SCH ×2 (04:15→04:50)
[2017-09-13 04:31] VITALS: BP 125/76; PULSE 97; RESP 18; TEMP 98.8; O2SAT 98
[2017-09-13 08:00] VITALS: BP 115/70; PULSE 93; RESP 16; TEMP 98.7; O2SAT 96
[2017-09-13] MEDS: SODIUM CHLORIDE 0.9% FLUSH 10 ML FLUSH IV FLUSH SCH (09:32)
[2017-09-13] MEDS: CIPROFLOXACIN 400 MG PREMIX 200 ML IV SCH (09:32)
--- NOTE | 2017-09-13 11:14 | HHI.PR ---
Subjective Remarks Temp 101 yesterday at noon. Afebrile since then. Patient feesl much better, feels comortable to go home. today. Eatin gbetter, encouraged PO intake / hydration. No fevr or chills. No n/v/d/c. No abd /suprapubic pain. Objective Vitals Vital Signs Date Time Temp Pulse Resp B/P (MAP) Pulse Ox O2 Delivery O2 Flow Rate FiO2 09/13/17 08:00 98.7 93 16 115/70 (85) 96 09/13/17 04:31 98.8 97 18 125/76 (92) 98 09/13/17 00:05 98.2 93 18 126/86 (99) 98 09/12/17 20:00 98.7 91 18 123/77 (92) 97 09/12/17 20:00 92 09/12/17 16:00 100.3 106 16 118/76 (90) 96 09/12/17 12:00 101.3 106 18 124/71 (88) 97 I/O 09/12/17 09/12/17 09/12/17 09/13/17 09/13/17 09/13/17 07:00 15:00 23:00 07:00 15:00 23:00 Intake Total 1200 ml 2566 ml 484 ml Output Total 1 ml Balance 1199 ml 2566 ml 484 ml Intake Oral 480 ml IV Total 1200 ml 2086 ml 484 ml Output Urine Total 1 ml # Voids 3 2 # Bowel Movements 2 2 Result Diagram: 09/12/1743 09/12/1743 Objective Remarks GENERAL: This is a well-nourished, well-developed patient, who appears ill CARDIOVASCULAR: Regular rate and rhythm without murmurs, gallops, or rubs. RESPIRATORY: Clear to auscultation. Breath sounds equal bilaterally. No wheezes , rales, or rhonchi. GASTROINTESTINAL: Abdomen soft right sided mild tenderness, mild right CVA +, abd is nondistended. + BS x4Q MUSCULOSKELETAL: Extremities without clubbing, cyanosis, or edema. . No calf tenderness. NEUROLOGICAL: Awake and alert. Motor and sensory grossly within normal limits. Normal speech. A/P Problem List: (1) Pyelonephritis ICD Code: N12 - Tubulo-interstitial nephritis, not specified as acute or chronic Status: Acute (2) Sepsis ICD Code: A41.9 - Sepsis, unspecified organism Status: Acute (3) Vaginal discharge ICD Code: N89.8 - Other specified noninflammatory disorders of vagina Status: Acute Assessment and Plan 21-year-old female with a history of kidney stones to the ED with complaints of general body aches and back pain for the past 2 days. Sepsis, WBCs 18.2, heart rate 142, MAXIMUM TEMPERATURE 100.6 , source Pyelonephritis, lactic 0.9 on admission. Sepsis resolved. UA shows large leukocyte esterase and moderate occult blood with positive protein on admission Abdominal CT reviewed and shows decreased density and edema involving the upper pole of the right kidney with some adjacent inflammatory type changes suggestive of focal nephritis given the bilateral nonobstructing renal stones. -Urine culture with E Coli pansensitive. Blood cultures NTD -1 dose Rocephin given in the ED, continue IV ciprofloxacin -4 L NS given an ED, continue IVF for hydration -Pain management with by mouth [place] Hypokalemia, potassium 3.2 -Supplementation ordered, BMP in a.m., will replace as needed Vaginal discharge, wet prep completed in ED, patient with positive cervical motion tenderness Labs: Chlamydia, gonorrhea, Trichomonas and yeast undetected -Patient treated for chlamydia and gonorrhea in ED DVT prophylaxis: SCDs Discussed Condition With Patient, nurse Discharge Planning DC home in stable condition to follow up as OP with PCP and consultants. Diet Regular Healthy Activity ad phuong as tolerated. Meds per med reconciliation Problem Qualifiers (1) Sepsis: Qualified Codes: A41.9 - Sepsis, unspecified organism Cherry Potter MD Sep 13, 2017 11:14
[2017-09-13] MEDS ORDERED: CIPR250T2 PO (11:15)
[2017-09-13] MEDS ORDERED: SODIUM CHLOR 0.45% 1000 ML INJ 1,000 ML IV SCH (11:15)
[2017-09-13] MEDS ORDERED: LACTCHW3 CHEW (11:15)
--- NOTE | 2017-09-13 11:15 | HHI.DS ---
Discharge Summary Admission Date Sep 11, 2017 at 20:18 Discharge Date: Sep 13, 2017 Admitting Diagnosis sepsis, pyelonephritis (1) Pyelonephritis ICD Code: N12 - Tubulo-interstitial nephritis, not specified as acute or chronic Status: Acute (2) Sepsis ICD Code: A41.9 - Sepsis, unspecified organism Status: Acute (3) Vaginal discharge ICD Code: N89.8 - Other specified noninflammatory disorders of vagina Status: Acute Procedures none Brief History - From Admission 21-year-old female with a history of kidney stones to the ED with complaints of general body aches and back pain for the past 2 days. Patient states over the past 2 days she has been having increasing generalized body aches and back pain , and today is extremely worse so she came to the hospital. She states the pain is a constant achy feeling the effects her whole body, with sharp pains to her lower back. She states the pain as an 8 out of 10 most of the time and worse with movement, she has been unable to eat and drink what the last 2 days. She states her last kidney stone was 2 months ago in [place]. She has not established a primary care physician in this area, she is in the process of moving from [place]. She states at home she is unsure if she had a fever due to lack of thermometer, but she does state she felt very cold and feverish. She denies any chest pain, shortness of breath, nausea or vomiting. Per the ER physician a pelvic exam was completed patient had positive cervical motion tenderness or discharge. CBC/BMP: 09/12/17 0643 09/12/17 0643 Significant Findings Laboratory Tests Test 09/11/17 15:25 09/11/17 15:35 09/11/17 15:40 09/11/17 17:00 White Blood Count 18.2 TH/MM3 (4.0-11.0) Neutrophils (%) (Auto) 84.6 % (16.0-70.0) Lymphocytes (%) (Auto) 6.6 % (9.0-44.0) Monocytes (%) (Auto) 8.5 % (0.0-8.0) Neutrophils # (Auto) 15.4 TH/MM3 (1.8-7.7) Monocytes # (Auto) 1.6 TH/MM3 (0-0.9) Prothrombin Time 13.8 SEC (9.8-11.6) Activated Partial Thromboplast Time 36.2 SEC (24.3-30.1) Phosphorus Level 1.5 MG/DL (2.5-4.9) Sodium Level 128 MEQ/L (136-145) Potassium Level 3.2 MEQ/L (3.5-5.1) Chloride Level 95 MEQ/L (98-107) Estimat Glomerular Filtration Rate 84 ML/MIN (>89) Troponin I LESS THAN 0.02 NG/ML Lipase 60 U/L (73-393) Urine Turbidity HAZY (CLEAR) Urine Protein 30 mg/dL (NEG-TRACE) Urine Ketones 150 mg/dL (NEG) Urine Occult Blood MOD (NEG) Urine Leukocyte Esterase LARGE (NEG) Urine RBC 20 /hpf (0-3) Urine WBC 166 /hpf (0-5) Urine WBC Clumps RARE (NONE) Urine Bacteria MANY /hpf (NONE) Test 09/12/17 06:43 Red Blood Count 3.39 MIL/MM3 (4.00-5.30) Hemoglobin 9.6 GM/DL (11.6-15.3) Hematocrit 28.6 % (35.0-46.0) Platelet Count 116 TH/MM3 (150-450) Monocytes (%) (Auto) 15.8 % (0.0-8.0) Monocytes # (Auto) 1.6 TH/MM3 (0-0.9) Random Glucose 109 MG/DL (74-106) Calcium Level 7.5 MG/DL (8.5-10.1) Chloride Level 110 MEQ/L (98-107) Carbon Dioxide Level 20.1 MEQ/L (21.0-32.0) Imaging Last Impressions Chest X-Ray 09/11/17 1512 Signed Impressions: Service Date/Time: Monday, September 11, 2017 15:09 - CONCLUSION: Normal examination. Jose Fernandez Jr., MD Abdomen/Pelvis CT 09/11/17 0000 Signed Impressions: Service Date/Time: Monday, September 11, 2017 17:57 - CONCLUSION: 1. There is an area of decreased density and edema involving the upper pole the right kidney with some adjacent inflammatory type changes suggestive of focal nephritis given the bilateral nonobstructing renal stones.. This needs to be correlated with patient's physical exam, clinical history and laboratory values. A second possibility could be a focal infarct of unknown etiology versus focal laceration if patient has a recent history of trauma to this location.. 2. Otherwise, the rest examination is unremarkable. Joey Cabrera MD PE at Discharge GENERAL: This is a well-nourished, well-developed patient, who appears ill CARDIOVASCULAR: Regular rate and rhythm without murmurs, gallops, or rubs. RESPIRATORY: Clear to auscultation. Breath sounds equal bilaterally. No wheezes , rales, or rhonchi. GASTROINTESTINAL: Abdomen soft right sided mild tenderness, Right CVA +, abd is nondistended. + BS x4Q MUSCULOSKELETAL: Extremities without clubbing, cyanosis, or edema. . No calf tenderness. NEUROLOGICAL: Awake and alert. Motor and sensory grossly within normal limits. Normal speech. Hospital Course 21-year-old female with a history of kidney stones to the ED with complaints of general body aches and back pain for the past 2 days. Sepsis, WBCs 18.2, heart rate 142, MAXIMUM TEMPERATURE 100.6 , source Pyelonephritis, lactic 0.9 on admission. Sepsis resolved. UA shows large leukocyte esterase and moderate occult blood with positive protein on admission Abdominal CT reviewed and shows decreased density and edema involving the upper pole of the right kidney with some adjacent inflammatory type changes suggestive of focal nephritis given the bilateral nonobstructing renal stones. -Urine culture with E Coli pansensitive. Blood cultures NTD -1 dose Rocephin given in the ED, continue IV ciprofloxacin -4 L NS given an ED, continue IVF for hydration -Pain management with by mouth [place] Hypokalemia, potassium 3.2 -Supplementation ordered, BMP in a.m., will replace as needed Vaginal discharge, wet prep completed in ED, patient with positive cervical motion tenderness Labs: Chlamydia, gonorrhea, Trichomonas and yeast undetected -Patient treated for chlamydia and gonorrhea in ED DVT prophylaxis: SCDs Discussed Condition With Patient, nurse Discharge Planning DC home in stable condition to follow up as OP with PCP and consultants. Diet Regular Healthy Activity ad phuong as tolerated. Meds per med reconciliation Pt Condition on Discharge: Stable Discharge Disposition: Discharge Home Discharge Time: > 30 minutes Discharge Instructions DIET: Follow Instructions for: As Tolerated, No Restrictions Activities you can perform: Regular-No Restrictions Follow up Referrals: PCP Follow-up - 2-3 Days New Medications: Ciprofloxacin (Ciprofloxacin) 500 Mg Tab 500 MG PO BID for Infection, #14 TAB 0 Refills Hydrocodone-Acetaminophen ([place]) 5-325 mg Tab 1 TAB PO Q6H PRN for PAIN, #12 TAB 0 Refills Lactobacillus Acidophilus (Lactinex) 1 Chew 1 TAB CHEW DAILY for Nutritional Supplement for 30 Days, #30 TAB 0 Refills Cherry Potter MD Sep 13, 2017 11:15
[2017-09-13] MEDS ORDERED: CIPR500T2 PO (11:19)
[2017-09-13 12:00] VITALS: BP 119/77; PULSE 84; RESP 16; TEMP 98.3; O2SAT 98
[2017-09-13] MEDS ORDERED: NORC5TAB PO (14:37)
== END 2017-09-13 15:58 | disposition home or self-care (01) | DRG 872 ==
LOC: NEPD 14:49 → NEDA 20:18 → N07A 21:11
PROVIDERS: ADMIT Hospitalist; ATTEND Hospitalist
DX: A41.9 Sepsis, unspecified organism (principal); N10 Acute pyelonephritis; N20.0 Calculus of kidney; E87.6 Hypokalemia; F17.210 Nicotine dependence, cigarettes, uncomplicated; N89.8 Other specified noninflammatory disorders of vagina; B96.20 Unspecified Escherichia coli [E. coli] as the cause of diseases classified elsewhere
CPT/HCPCS: 71010; 74177; 80048; 80053; 81001; 82550; 82552; 83605; 83690; 83735; 84100; 84484; 84702; 85025; 85610; 85730; 87040; 87077; 87086; 87186; 87210; 87491; 87591; 87804; 93005; 96361; 96365; 96375; 99292; J0696; J0744; J1885; J2270; J2405; J7030; Q9967